=== PATIENT | male | born 1955 | race Caucasian/White ===

== ENCOUNTER → 2018-01-16 | Outpatient (CLI) | payer OTHER ==
[~2018-01-16] MED LIST: ACET1TAB84 PO; EPP3/2 IM; MECL1TAB42 PO; MULT-221 PO; PROP60CA5 PO; SUMA100T16 PO
[2018-01-16 12:52] LABS: ALBUMIN 4.1 gm/dl (3.4-5.0); ALT/SGPT 28 U/L (12-78); BLOOD UREA NITROGEN 19 mg/dl (7-18); CALCIUM 8.9 mg/dl (8.5-10.1); CARBON DIOXIDE 30 mmol/L (21-32); CHOLESTEROL 193 mg/dl (0-200); GLUCOSE 98 mg/dl (70-99); POTASSIUM 4.2 mmol/L (3.5-5.1); SODIUM 138 mmol/L (136-145)
[2018-01-16 12:56] LABS: ALKALINE PHOSPHATASE 54 U/L (45-117); AST/SGOT 14 U/L (15-37); LDL CHOLESTEROL CALCULATED 120 mg/dl; TOTAL PROTEIN 7.3 gm/dl (6.4-8.2)
== END | disposition home or self-care (01) ==
LOC: C.LABBFT 07:40
PROVIDERS: ATTEND Internal Medicine
DX: Z00.00 Encounter for general adult medical examination without abnormal findings (principal); G43.909 Migraine, unspecified, not intractable, without status migrainosus; G25.0 Essential tremor; Z12.5 Encounter for screening for malignant neoplasm of prostate

== ENCOUNTER 2021-07-01 05:52 | Observation (INO) ==
--- NOTE | 2021-06-22 15:06 | PAT Medication Instructions ---
Medication Instructions Date of Service June 22, 2021 Home Medications Medication Instructions Recorded albuterol sulfate 90 mcg/actuation 2 puff INH QID PRN #8.5 gm 12/09/19 aerosol inhaler (ProAir HFA) sumatriptan succinate 100 mg tablet 100 mg PO Q2H PRN 90 Days #27 tab 06/18/21 tramadol 50 mg tablet 50 mg PO Q8H PRN #30 tab 06/18/21 cyclobenzaprine 10 mg tablet 10 mg PO TID PRN Multivitamin 50 Plus 1 tab PO QAM naproxen sodium 220 mg tablet 440 mg PO QAM albuterol sulfate 90 mcg/actuation aerosol inhaler (ProAir HFA) 2 puff INH QID PRN meclizine 25 mg tablet 25 mg PO BID PRN sumatriptan succinate 100 mg tablet 100 mg PO Q2H PRN tramadol 50 mg tablet 50 mg PO Q8H PRN atorvastatin 10 mg tablet 10 mg PO HS magnesium 250 mg tablet 250 mg PO QAM propranolol 60 mg capsule,24 hr,extended release 60 mg PO QAM ASK your surgeon for instructions naproxen sodium 220 mg tablet 440 mg PO QAM DO NOT take the morning of surgery cyclobenzaprine 10 mg tablet 10 mg PO TID PRN Multivitamin 50 Plus 1 tab PO QAM magnesium 250 mg tablet 250 mg PO QAM Take morning of surgery With a small sip of water, OTHERWISE NOTHING TO EAT OR DRINK AFTER MIDNIGHT: albuterol sulfate 90 mcg/actuation aerosol inhaler (ProAir HFA) 2 puff INH QID PRN (use if needed; please bring rescue inhaler with you to hospital day of surgery if possible) meclizine 25 mg tablet 25 mg PO BID PRN (if needed) sumatriptan succinate 100 mg tablet 100 mg PO Q2H PRN (if needed) tramadol 50 mg tablet 50 mg PO Q8H PRN (okay to take up to 4 hours prior to surgery if needed) propranolol 60 mg capsule,24 hr,extended release 60 mg PO QAM Take evening before surgery cyclobenzaprine 10 mg tablet 10 mg PO TID PRN (if needed) albuterol sulfate 90 mcg/actuation aerosol inhaler (ProAir HFA) 2 puff INH QID PRN (if needed) meclizine 25 mg tablet 25 mg PO BID PRN (if needed) sumatriptan succinate 100 mg tablet 100 mg PO Q2H PRN (if needed) tramadol 50 mg tablet 50 mg PO Q8H PRN (if needed) atorvastatin 10 mg tablet 10 mg PO HS Other Notes If you have any questions please call us at [phone] or [phone] or [phone] or [phone]
--- NOTE | 2021-06-23 11:29 | Anesthesiology Consultation ---
Date of Service June 23, 2021 Assessment & Plan (1) Encounter for pre-operative examination: Chart Review Chart Review: Acceptable Risk for Surgery (pending preop Covid testing results ) and Patient seen in Pre Admission Testing Per PAT appointment 06/23/2021, patient denies any recent travel. No known Covid infection in the past 90 days. Patient is vaccinated for Covid. No known Covid positive contacts or Covid related symptoms. Preop Covid testing scheduled 06/29/21= will await results. Educated on importance of self quarantining, social distancing and wearing mask in public both for the patient after Covid testing done Teaching & Discussion Pre-Anesthesia Teaching/Discussion Notes: Instructed NPO after midnight before surgery,except medications with 15 cc of water. Medication instructions provided according to the [facility] guidelines. History Surgery Operation Date: 07/01/21 11:10 Proposed Procedures p Laparoscopic Robotic Assisted Radical Retropubic Prostatectomy, Possible Open, Possible Pelvic Lymph Node Dissection, Possible Surapubic Tube Placement - Jere Del Castillo MD Height/Weight Height: 5 ft 7.5 in Weight: 73.7 kg Allergies Allergy/AdvReac Type Severity Reaction Status Date / Time naproxen Allergy Severe SEE NOTES Verified 06/21/21 16:06 BELOW sulfamethoxazole Allergy Mild " I SWELL Verified 06/21/21 16:06 UP" & Rash Medications Home Medications Medication Instructions Recorded Confirmed Last Taken cyclobenzaprine 10 mg tablet 10 mg PO TID PRN 10/18/18 06/21/21 Unknown [id number] 1 tab PO QAM 10/18/18 06/21/21 09/07/20 tablet (Multivitamin 50 Plus) naproxen sodium 220 mg tablet 440 mg PO QAM 10/18/18 06/21/21 09/07/20 albuterol sulfate 90 mcg/actuation 2 puff INH QID PRN #8.5 gm 12/09/19 06/21/21 Unknown aerosol inhaler (ProAir HFA) meclizine 25 mg tablet 25 mg PO BID PRN 09/02/20 06/21/21 Unknown sumatriptan succinate 100 mg tablet 100 mg PO Q2H PRN 90 Days #27 tab 06/18/21 06/21/21 Unknown tramadol 50 mg tablet 50 mg PO Q8H PRN #30 tab 06/18/21 06/21/21 Unknown atorvastatin 10 mg tablet 10 mg PO HS 06/21/21 06/21/21 Unknown magnesium 250 mg tablet 250 mg PO QAM 06/21/21 06/21/21 Unknown propranolol 60 mg capsule,24 60 mg PO QAM 06/21/21 06/21/21 Unknown hr,extended release Past Medical History Medical History Arthritis SPINE & HANDS Chronic migraine On propranolol Essential tremor Bilateral hands - takes propranolol - keeps under good control History of COVID-19 01/2021 + TEST, [employer] - COUGH & SORE THROAT. NO CURRENT SYMPTOMS. History of vertigo No recent issues Hyperlipidemia Well controlled Kidney stones (06/11/20) Found incidentally- asymptomatic- urology aware Prostate cancer (12/15/20) Dx'ed in Nov 2020 Exercise / Class Metabolic Activity II 4-5 Yardwork/Stairs/Walk up hill (one flight of stairs - no chest pain or SOB ) Past Family History Family History Aunt Leukemia Family history of diabetes mellitus Heart disease of a heart attack Father Myocardial infarction Sister Hypertension Other No family history of adverse response to anesthesia Denies family history of Ovarian cancer Prostate cancer Breast cancer Colorectal cancer Past Surgical History Surgical History H/O bilateral inguinal hernia repair (02/26/21) Bilateral Inguinal Hernia Open Repair with Mesh Dr. Arteaga 02/26/2021 History of bilateral cataract extraction (~2002) History of colonoscopy (~2019) History of hand surgery (~2010) right-I&D History of tonsillectomy and adenoidectomy (~1963) Status post LASIK surgery of both eyes (~2000) HX Past Anesthesia History No Hx of Anesthesia Complications and No Family Hx of Anesthesia Complications History of PONV No Hx of PONV and No Hx of Motion Sickness Social History Smoking Status: Never smoker Do You Dip or Chew Tobacco: No Hx Alcohol Use: Yes Alcohol type: beer and hard liquor alcohol intake frequency: holidays/special occasions only Hx Substance Use: No substance use type: does not use Review of Systems Occ, mild snoring- no hx of sleep study Hx of blood transfusion - s/p tonsillectomy (1964) Patient denies chest pain, shortness of breath, dyspnea on exertion, reflux, cough, wheezing, palpitations. No hx of seizures, stroke, CT. No hx of blood clots. Physical Exam Vital Signs VITALS BP 153/92 P 75 TEMP 97.8 SP02 97% RESP 16 Constitutional no acute distress ENMT Mouth: no TMJ clicking Thyromental Distance: > or= 3.5 Finger Breadths (3.5) Mallampati Class: II Crowns to molars Neck + facial hair (advised pt to shave/trim booth ); neck extension not limited Respiratory normal respiratory effort; no respiratory distress Auscultation: lungs clear to auscultation bilaterally; no wheezes Cardiovascular Rate/Rhythm: regular rate and regular rhythm Heart Sounds: no murmur Vessels: no carotid bruit Musculoskeletal Spine: no pain with cervical ROM Extremities: extremities normal to inspection Psychiatric Orientation: alert Lab Results Anesthesia Preop Results Results Anesthesia Widget: WBC 5.59 K/uL (4.8-10.8) 06/16/21 Hgb 15.2 g/dL (14.0-18.0) 06/16/21 Hct 42.8 % (42-52) 06/16/21 Plt 169 K/uL (130-400) 06/16/21 Na 141 mmol/L (136-145) 06/16/21 K 4.0 mmol/L (3.5-5.1) 06/16/21 Cl 109 mmol/L (98-107) H 06/16/21 CO2 28 mmol/L (21-32) 06/16/21 BUN 26 mg/dl (7-18) H 06/16/21 Creat 0.80 mg/dl (0.6-1.4) 06/16/21 Glucose Level 84 mg/dl (70-99) 06/16/21 Urine Color Yellow 06/23/21 Urine Appearance Clear (Clear) 06/23/21 Urine pH 5.5 (4.5-7.5) 06/23/21 Urine Specific [place] 1.021 (1.000-1.030) 06/23/21 Urine Protein Negative (Negative) 06/23/21 Urine Glucose (UA) Negative (Negative) 06/23/21 Urine Ketones Negative (Negative) 06/23/21 Urine Blood Negative (Negative) 06/23/21 Urine Nitrite Negative (Negative) 06/23/21 Urine Bilirubin Negative (Negative) 06/23/21 Urine Urobilinogen Negative (Negative) 06/23/21 Urine Leukocyte Esterase Negative (Negative) 06/23/21 Blood Type B Negative 06/23/21 Antibody Screen NEGATIVE 06/23/21 Testing Laboratory Results 06/17/21= URINE CULTURE: No growth Electrocardiogram Date: 02/17/21 Findings: + NSR @ (66bpm) Normal EKG per cardio. Chest X-Ray Date: 06/23/21 Findings: + NAD
[2021-07-01] MEDS ORDERED: LACTATED RINGER'S 1,000 ML IV SCH (06:00)
[2021-07-01] MEDS ORDERED: cefOXitin 2,000 MG in DEXTROSE 5% 50 ML IV SCH (06:00)
[2021-07-01] MEDS ORDERED: HEPARIN SOD 5,000 UNIT/0.5 ML VIAL SQ ONE (06:00)
[2021-07-01] MEDS ORDERED: LR 15ML/HR IV SCH (06:00)
[2021-07-01] MEDS ORDERED: LIDOCAINE 2% 2 ML VIAL/AMP(20MG/ML) INFIL ONE (06:36)
[2021-07-01] MEDS ORDERED: ROCURONIUM BROMIDE 10 MG/ML 5 ML VIAL IV ONE ×2 (06:36→08:41)
[2021-07-01] MEDS ORDERED: PROPOFOL IV EMULSION 10 MG/ML 20 ML VIAL IV ONE (06:36)
[2021-07-01] MEDS ORDERED: ONDANSETRON INJ 2 MG/ML 2 ML VIAL ONE (06:36)
[2021-07-01] MEDS ORDERED: DEXAMETHASONE SOD INJ 4 MG/ML VIAL ONE (06:36)
[2021-07-01] MEDS ORDERED: MIDAZOLAM HCL 1 MG/ML 2ML VIAL ONE (06:37)
[2021-07-01] MEDS ORDERED: fentaNYL citrate 100 MCG/2 ML VIAL ONE ×2 (06:37→08:58)
--- NOTE | 2021-07-01 07:23 | History & Physical Bridge Note ---
Date of Service July 01, 2021 History & Physical Bridge Note I have examined the patient, reviewed the History & Physical and in the interval since the performance of the History & Physical I have noted the following changes of clinical significance: no changes noted
[2021-07-01] MEDS ORDERED: BUPIVACAINE 0.5 % 5 MG/1 ML MPF 30ML VIAL ONE (07:57)
[2021-07-01] MEDS ORDERED: PHENYLEPHRINE 100MCG/ML 5ML SYR ONE (08:50)
[2021-07-01] MEDS ORDERED: ePHEDrine sulfate 50 MG/ML SYR ONE (08:50)
[2021-07-01] MEDS ORDERED: FLOSEAL HEMOSTATIC MATRIX 10ML TOP ONE (09:46)
[2021-07-01] MEDS ORDERED: SURGICEL ABSORB HEMOSTAT 2IN X 14IN TOP ONE (09:47)
[2021-07-01] MEDS ORDERED: ACETAMINOPHEN 1000 MG/100 ML IV IV ONE (09:49)
[2021-07-01] MEDS ORDERED: KETOROLAC 30 MG/ML VIAL ONE (09:53)
[2021-07-01] MEDS ORDERED: fentaNYL citrate 100 MCG/2 ML VIAL IV PRN (11:19)
[2021-07-01] MEDS ORDERED: ONDANSETRON INJ 2 MG/ML 2 ML VIAL IV PRN ×2 (11:19→12:26)
[2021-07-01] MEDS ORDERED: NALOXONE HCL 0.4 MG/1 ML VIAL/CARP IV PRN (11:19)
[2021-07-01] MEDS ORDERED: FLUMAZENIL 0.1 MG/1 ML 10 ML VIAL IV PRN (11:19)
[2021-07-01] MEDS ORDERED: PROMETHAZINE HCL 12.5 MG in SODIUM CHLORIDE 0.9% 50 ML IV PRN (11:19)
[2021-07-01] MEDS ORDERED: LABETALOL HCL IV 5 MG/ML 20ML IV PRN (11:19)
[2021-07-01] MEDS ORDERED: ePHEDrine sulfate 50 MG/ML AMP IV PRN (11:19)
[2021-07-01] MEDS ORDERED: ATROPINE SULFATE 0.1 MG/ML 10ML SYR IV PRN (11:19)
--- NOTE | 2021-07-01 11:25 | Operative Report ---
PG Post Operative Report Pre & Post Diagnosis Operation Date: 07/01/21 08:00 Pre-Op Diagnosis: Prostate Cancer Post-Op Diagnosis: Prostate Cancer I identified the patient and participated in the time-out.: Yes Procedure Operation Date: 07/01/21 08:00 Actual Procedures p Robotic Laparoscopic-Assisted Radical Retropubic Prostatectomy(Not Applicable) - Jere Del Castillo MD Surgeon Camilo Del Castillo MD Professor Of Geology Josy Luevano Estimated Blood Loss 100 Findings Consistent with Post-Op Diagnosis Specimens 1. Periprostatic fat 2. Prostate and seminal vesicles Description of Procedure The patient was identified in the preoperative holding area, appropriate informed consents were reviewed and completed, and he was transported to the operating suite. Subcutaneous heparin was administered in the pre-operative holding area. Upon arrival in the operating suite, he received appropriate antibiotics and general anesthesia. He was positioned in dorsal lithotomy, a B&O suppository was inserted after digital rectal exam, and he was prepped and draped in standard fashion. A Edmond catheter was inserted in the sterile field. A Veress needle was passed per umbilicus with uniform insufflation of the abdomen to 15mmHg. He was placed in steep Trendelenburg position. A periumbilical incision was then made to accommodate a 12mm Visiport with 10mm 0degree laparoscope. Inspection of the abdomen was carried out, and there was no evidence of traumatic entry or injury secondary to the Veress needle. After confirming a clear anterior abdominal wall, ports were subsequently placed in standard robotic prostatectomy fashion without incident. To begin the robotic portion of the case, the left lateral aspect of the sigmoid was mobilized off of the left pelvic side wall to allow the pouch of Jordan to be appropriately visualized. I then made an incision in the pouch of Jordan, overlying the seminal vesicles. Both SVs as well as the ampullae of the vasa were entirely dissected, with the vasa transected 3cm from the prostate. The medial umbilical ligaments were then controlled with bipolar electrocautery just inferior to the umbilicus. Following cauterization, they were divided utilizing monopolar cautery. A peritoneal incision was carried from this location to the medial aspect of the internal inguinal rings bilaterally with care to avoid opening through the ring. This incision was concluded when the vas deferens was reached. Dissection of the bladder and prostate off of the posterior aspect of the pubic arch was completed allowing full visualization of the prostate. The fat overlying the prostate was removed en bloc and passed off the table as a specimen labeled "periprostatic fat". The endopelvic fascia was cleared during this portion of the procedure, and subsequently opened - first on the right and then the left. The incision through the endopelvic fascia began near the prostate-bladder junction and was carried to the apex with extreme care to preserve all lateral levator musculature as well as the periurethral musculature and sphincter complex. I additionally preserved the puboprostatic ligaments. I then controlled the DVC with a 3-0 V-lock suture in overlapping/figure of 8 fashion. My attention then returned to the prostate, with identification of the bladder neck aided by gentle traction on the Edmond catheter and lateral to medial pressure at the presumed level of the bladder neck with the robotic instruments. An anterior cystotomy was made, the Edmond balloon deflated and the catheter guided through the incision to allow anterior retraction. I attempted to preserve maximal bladder neck musculature as I circumferentially dissected around the bladder neck. After incision through the posterior aspect of the mucosa, the dissection was carried through detrusor muscle until the bilateral ampullae of the vasa were identified. The previously dissected vasa and SVs were brought through the incision and used to elevated the prostate anteriorly. A posterior plane behind the prostate was then developed - splitting Denonvilliers's fascia. This dissection was carried as far as possible towards the apex as well as far as possible laterally. An incision in the lateral prostatic fascia was then made bilaterally to facilitate control of the vascular pedicles and preservation of the nerve bundles. Vasculature running along the posterior/lateral aspect of the prostate was preserved as well as the tissue containing the nerves. The pedicles were then controlled with a series of Weck clips. The apical attachments of the prostate were remaining at that stage. The DVC was divided after control with bipolar cautery over the prostate. Continuous inspection from anterior and lateral views allowed me to closely follow the apical contour of the prostate and maximally preserve urethral length and tissue. The prostate was entirely freed at that point, and collected in an EndoCatch bag before being moved out of the field of vision. Hemostasis was confirmed and anastomosis of the bladder and urethra was completed utilizing a double armed V- Lock stitch. A new Edmond catheter was inserted and the anastomosis tested with irrigation. There was no evidence of leak. The robot was undocked, the specimen extracted through expansion of the chris-umbilical camera port. The fascia was closed with a series of 0-ethibond figure of 8 stitches. The right property management assistant port was closed in two layers - with a figure of 8 0-Vicryl to reapproximate the fascia followed by 4-0 Monocryl to close the skin. Monocryl was used to close all other skin incisions. All wounds were dressed with Dermabond. The case was concluded and the patient taken to the PACU in stable condition. Josy Luevano assisted from inicision to closure. I attest to the content of the Intraoperative Record and any orders documented therein. Any exceptions are noted below.
[2021-07-01 11:50] LABS: Hematocrit (blood only) 38.1 % (42-52); Mean Corpuscular Hemoglobin 30.6 pg (25-34); Mean Corpuscular Volume 83.2 fL (80-100); Platelet Count 167 K/uL (130-400); RDW Coefficient of Variation 12.9 % (11.5-14.5); Red Blood Count 4.58 M/uL (4.7-6.1); White Blood Count 15.45 K/uL (4.8-10.8)
[2021-07-01 11:56] LABS: Mean Corpuscular Hgb Conc 36.7 g/dL (32-36)
--- NOTE | 2021-07-01 12:03 | Anesthesiology Progress Note ---
Date of Service July 01, 2021 Anesthesia Post Procedure Vital Signs Vital Signs: Temp Pulse Pulse Resp BP Pulse Ox 07/01/21 11:55 36.4 C L 89 16 113/80 95 07/01/21 11:45 90 16 112/77 96 07/01/21 11:35 92 H 16 105/77 97 07/01/21 11:25 91 H 16 100/73 95 07/01/21 11:15 94 H 16 119/80 97 07/01/21 11:08 36.3 C L 88 16 113/76 98 07/01/21 06:57 37.2 C 79 18 143/69 H 99 Transfer of Care Handoff Completed per policy Notes Mental Status: alert / awake / arousable Patient Amnestic to Procedure: Yes Nausea / Vomiting: adequately controlled Pain: adequately controlled Airway Patency, RR, SpO2: stable & adequate BP & HR: stable & adequate Hydration State: stable & adequate Anesthetic Complications: no major complications apparent
[2021-07-01 12:08] LABS: BUN Creatinine Ratio 24.6 (10-20); Calcium 8.3 mg/dl (8.5-10.1); Creatinine Clr Calc Pharmacy 89.9 ml/min; Est GFR (Non-African American) 94.9 ml/min; Potassium 4.2 mmol/L (3.5-5.1)
[2021-07-01 12:12] LABS: Basophils # (auto) 0.01 K/uL (0-0.2); Basophils % (auto) 0.1 %; Echinocytes 1+; Eosinophils # (auto) 0.03 K/uL (0-0.5); Eosinophils % (auto) 0.2 %; Immature Granulocytes # (auto) 0.03 K/uL (0.00-0.02); Immature Granulocytes % (auto) 0.2 %; Lymphocytes # (auto) 1.02 K/uL (1.2-3.4); Lymphocytes % (auto) 6.6 %; Monocytes # (auto) 0.18 K/uL (0.11-0.59); Monocytes % (auto) 1.2 %; Neutrophils # (auto) 14.18 K/uL (1.4-6.5); Neutrophils % (auto) 91.7 %; Polychromasia 1+
[2021-07-01] MEDS ORDERED: KETOROLAC TROMETHAMINE 15 MG/ML VIAL IV PRN (12:26)
[2021-07-01] MEDS ORDERED: MoRPHine SULFATE 4 MG/ML 1 ML CARP\\VIAL IV PRN (12:26)
[2021-07-01] MEDS ORDERED: ACETAMINOPHEN 325 MG TAB PO PRN (12:26)
[2021-07-01] MEDS ORDERED: oxyCODONE HCL IR 5 MG TAB (IMMEDIATE RELEASE) PO PRN ×2 (12:26)
[2021-07-01] MEDS ORDERED: SUMAtriptan succinate 100 MG TAB PO PRN (12:26)
[2021-07-01] MEDS ORDERED: MoRPHine SULFATE 2 MG/ML CARP IV PRN (12:26)
[2021-07-01] MEDS: LACTATED RINGER'S 1,000 ML IV SCH ×2 (15:07→23:58)
[2021-07-01] MEDS: ceFAZolin 2000MG 2,000 MG/15 ML SYR IV SCH ×2 (15:48→23:55)
[2021-07-01] MEDS: HEPARIN SOD 5,000 UNIT/0.5 ML VIAL SQ SCH (20:21)
[2021-07-01] MEDS ORDERED: ATORVASTATIN 10 MG TAB PO SCH (21:00)
--- NOTE | 2021-07-02 08:34 | Urology Progress Note ---
Date of Service July 02, 2021 Assessment & Plan (1) Prostate cancer: Plan: 66 yo M POD #1 s/p Robotic Laparoscopic-Assisted Radical Retropubic Prostatectomy with Dr. Del Castillo. - Doing well, progressing as expected - Afebrile, post op lab work (07/01) reviewed and as expected - Minimal pain - Tolerating clear liquid diet - advance to full liquids, d/c IV fluids - Encouraged OOB ambulation - Incisions appropriate - Edmond catheter intact, patent and draining clear urine with minimal pink/red tinge - Maintain Edmond catheter upon discharge - Expected clinical course reviewed, all questions answered - Anticipate discharge to home later today if he continues to progress as expected - Outpatient follow-ups in place Admission and Anticipated Discharge Date Admission Date: July 01, 2021 Supervising Physician Co-Signing Physician Notes Doing extremely well no pain ambulating urine clear plan for d/c home after lunch Subjective 66 yo M POD #1 s/p Robotic Laparoscopic-Assisted Radical Retropubic Prostatectomy with Dr. Del Castillo. Pt awake, alert and sitting up in bedside chair eating breakfast this AM. Tolerating clear liquid diet. No issues overnight. Notes mild incisional discomfort with movement today. Per chart review, has not utilized pain medication post-operatively. Has not ambulated in hallway yet. Tolerating Edmond catheter - intact, patent and draining clear with minimal pink/red tinge. No nausea or vomiting, no flatus. No fever or chills. He feels ready for discharge home today. Chart review: Afebrile, lab work 07/01 - creatinine 0.79, WBC 15.45, Hgb 14.0. No additional concerns today. Review of Systems Constitutional: as per Subjective / HPI Gastrointestinal: as per Subjective / HPI Genitourinary: + as per Subjective / HPI Physical Exam Constitutional: well developed and well nourished; no acute distress and not i ll appearing Respiratory: normal respiratory effort and able to speak in complete sentences; no respiratory distress and no labored breathing Cardiovascular: Extremities: no pedal edema Gastrointestinal (Abdomen): Inspection/Auscultation: abdomen normal to inspe ction; abdomen not distended Percussion/Palpation: abdomen soft; abdomen nontender and no guarding Musculoskeletal: Head/Neck/Chest: normocephalic and head atraumatic Extremities: extremities normal to inspection Skin: Surgical incisions healthy and well approximated, C/D/I Neurologic: moves all extremities and awake Psychiatric: A+Ox3, euthymic affect Genitourinary: Edmond catheter intact, patent and draining clear with minimal pink/red tinge Results & Data ([facility]) Vital Signs (Past 12 Hours) Vital Signs Temp Pulse Resp BP Pulse Ox 07/02/21 07:59 36.9 C 87 16 132/82 99 07/02/21 04:00 36.7 C 81 18 115/74 96 07/01/21 22:42 37.4 C 105 H 15 113/77 96 PG Care Time/CCT Total # of Minutes Spent Total Time Spent with Patient: Total time spent is greater than 50% in coordination of care (as documented) at patient's floor/unit and/or counseling patient: Coding Level of Care Code 74917 Subseq Hosp Care Lvl 2 Diagnoses Prostate cancer C61
[2021-07-02] MEDS: HEPARIN SOD 5,000 UNIT/0.5 ML VIAL SQ SCH (08:51)
[2021-07-02] MEDS: LACTATED RINGER'S 1,000 ML IV SCH (08:56)
[2021-07-02] MEDS ORDERED: CEROVITE ADV FORMULA TAB PO SCH (09:00)
[2021-07-02] MEDS ORDERED: MAGNESIUM OXIDE 400 MG TAB PO SCH (09:00)
[2021-07-02] MEDS ORDERED: PROPRANOLOL HCL 60 MG LA CAP PO SCH (09:00)
[2021-07-02 09:52] LABS: Eosinophils # (auto) 0.01 K/uL (0-0.5); Eosinophils % (auto) 0.1 %; Hematocrit (blood only) 37.8 % (42-52); Hemoglobin 13.4 g/dL (14.0-18.0); Immature Granulocytes # (auto) 0.02 K/uL (0.00-0.02); Immature Granulocytes % (auto) 0.2 %; Lymphocytes # (auto) 2.18 K/uL (1.2-3.4); Lymphocytes % (auto) 18.1 %; Mean Corpuscular Hgb Conc 35.4 g/dL (32-36); Mean Corpuscular Volume 84.8 fL (80-100); Mean Platelet Volume 10.1 fL (7.4-10.4); Monocytes % (auto) 7.5 %; Neutrophils # (auto) 8.96 K/uL (1.4-6.5); Neutrophils % (auto) 74.1 %; Platelet Count 184 K/uL (130-400); RDW Coefficient of Variation 13.2 % (11.5-14.5); RDW Standard Deviation 40.2 fL (36.4-46.3); Red Blood Count 4.46 M/uL (4.7-6.1); White Blood Count 12.07 K/uL (4.8-10.8)
[2021-07-02 10:27] LABS: BUN Creatinine Ratio 15.1 (10-20); Calcium 8.3 mg/dl (8.5-10.1); Creatinine Clr Calc Pharmacy 71.7 ml/min; Est GFR (African American) 92.9 ml/min; Est GFR (Non-African American) 80.2 ml/min; Potassium 3.7 mmol/L (3.5-5.1)
== END 2021-07-02 15:30 | disposition home or self-care (01) ==
LOC: ASU 05:52 → INTOOBSV 11:12 → 3W 11:12